=== PATIENT | male | born 1975 | race Caucasian/White ===

== ENCOUNTER 2022-01-16 11:40 | Emergency (ER) | payer SELFPAY ==
[2022-01-16] MEDS ORDERED: Sodium Chloride 0.9% 10 ML Syringe FLUSH PRN (11:50)
[2022-01-16 12:39] LABS: ANION GAP 12.3 mmol/L (5-15); CHLORIDE,CL 99 mmol/L (98-107); SODIUM,NA 136 mmol/L (136-145)
== END 2022-01-16 13:55 | disposition home or self-care (01) ==
LOC: KA.ED 11:40
DX: R07.89 Other chest pain (principal); K04.7 Periapical abscess without sinus; K02.9 Dental caries, unspecified; J94.9 Pleural condition, unspecified
CPT/HCPCS: 36415; 71045; 80053; 84484; 85025; 85379; 86140; 93005; 93010; 99284; 99285-25